=== PATIENT | female | born 1990 | race Caucasian/White ===

== ENCOUNTER 2018-03-10 17:20 | Outpatient (CLI) | payer OTHER ==
[2018-03-10 17:47] VITALS: BP 125/80
--- NOTE | 2018-03-12 08:09 | Physician Query-Final Dx ---
MADDISON MAURO 03/12/18 0809: Clinic Account Progress/Dx Physician Query: Please give diagnosis Date of Service Mar 10, 2018 at 17:20 KATHARINE BAEZ MD 03/12/18 0903: Clinic Account Progress/Dx DIAGNOSIS: Diagnosis 30 weeks gestation Neurologic symptoms, suspected complex migraine, however given severity of symptoms sent to ER for evaluation MADDISON MAURO Mar 12, 2018 08:09 KATHARINE BAEZ MD Mar 12, 2018 09:03
== END 2018-03-10 17:53 | disposition designated cancer center or children's hospital (05) ==
LOC: WSo 17:20 → LDRP 17:36 → WSo 17:53
PROVIDERS: ATTEND Family Medicine
DX: O99.353 Diseases of the nervous system complicating pregnancy, third trimester (principal); G43.909 Migraine, unspecified, not intractable, without status migrainosus; R20.0 Anesthesia of skin; R47.89 Other speech disturbances; Z3A.30 30 weeks gestation of pregnancy
CPT/HCPCS: 99211

== ENCOUNTER 2018-03-10 17:57 | Emergency (ER) | payer OTHER ==
[~2018-03-10] VITALS: Ht 162.6 cm; Wt 76.2 kg
[2018-03-10 18:25] LABS: BILIRUBIN,URINE NEGATIVE (NEGATIVE); CLARITY,URINE CLEAR; COLOR,URINE YELLOW; GLUCOSE, URINE (UA) NEGATIVE (NEGATIVE); KETONES,URINE NEGATIVE (NEGATIVE); LEUKOCYTE ESTERASE ,URINE 2+ (NEGATIVE); NITRITE,URINE NEGATIVE (NEGATIVE); PH,URINE 6.5 (5-9); PROTEIN,URINE NEGATIVE (NEGATIVE); UROBILINOGEN,URINE NORMAL (NORMAL)
[2018-03-10 18:38] LABS: BACTERIA,URINE FEW /HPF; SQUAMOUS EPITHELIAL CELL,UR 0-2 /HPF
--- NOTE | 2018-03-10 18:57 | ED General ---
General Chief Complaint: Neurological Problems Stated Complaint: MIGRANE, R HAND NUMB, VISION BLURRY Nursing Triage Note: TO ROOM PATIENT PATIET APX 29 WEEKS PREG, PMH OF MIGRAIN WAS AT WORK WHEN SHE STARTED SEEING BLACK SPOTS THAT SHE SEE'S WITH HER MIGRAIN. ,BUT CONCERNED THAT SHE COULD NOT THINK WHAT SHE WANTED TO SAY. AND HAD NUMBNESS IN R HAND. WITH HOT FLASHES. THINKS THEY LASTED APX 30 MIN.SYMPTOMS RESOLVED ON ADMIT. Nursing Sepsis Screen: No Definite Risk Source of Information: Patient Exam Limitations: No Limitations History of Present Illness Date Seen by Provider: Mar 10, 2018 Time Seen by Provider: 17:45 Initial Comments This 27-year-old woman at 30 weeks gestational age presents to the emergency room with acute neurologic symptoms of right hand numbness, blurry vision, receptive and expressive dysphasia, and headache. She was initially taken to labor and delivery because of her gestational age but was assessed there by this provider and brought back to the ER for clearance of her neurologic complaints. Patient's symptoms started while at work 1-2 hours prior to presentation. She initially thought she was having a migraine but then became concerned when symptoms were escalating. She has had similar symptoms with migraines in the past but has never had the expressive or receptive dysphasia which most concerned her. She then decided to present to the emergency room. She lives and receives her care in [place], [place]. She works in [employer]. Patient states her symptoms started mild and escalated. They then began to fade. On labor and delivery she had minimal numbness in her hand and minimal dysphasia. Headache and blurry vision had resolved. By the time she was brought back down to the emergency room her symptoms had resolved. She was normotensive. She denied any contractions, abdominal pain, or other abdominal complaints. Allergies and Home Medications Allergies Coded Allergies: No Known Drug Allergies (Unverified , 03/10/18) Home Medications No Active Prescriptions or Reported Meds Patient Home Medication List Home Medication List Reviewed: Yes Review of Systems Constitutional: no symptoms reported EENTM: see HPI Respiratory: no symptoms reported Cardiovascular: no symptoms reported Gastrointestinal: no symptoms reported Genitourinary: no symptoms reported : Yes Musculoskeletal: no symptoms reported Skin: no symptoms reported Psychiatric/Neurological: See HPI Hematologic/Lymphatic: No Symptoms Reported Immunological/Allergic: no symptoms reported Past Cgwcrll-Zlravw-Kkbkne Hx Patient Social History Alcohol Use: Denies Use Recreational Drug Use: No Smoking Status: Never a Smoker Recent Foreign Travel: No Contact w/Someone Who Travel: No Recent Infectious Disease Expo: No Past Medical History Surgeries: No Respiratory: No Cardiac: No Neurological: Yes Headaches /Migraines : Yes Reproductive Disorders: No Genitourinary: No Gastrointestinal: No Musculoskeletal: No Endocrine: No HEENT: No Cancer: No Psychosocial: No Integumentary: No Physical Exam Vital Signs Vital Signs - First Documented 03/10/18 18:00 Temp 98.0 Pulse 42 Resp 18 B/P (MAP) 125/84 (98) Pulse Ox 9 Capillary Refill : Less Than 3 Seconds General Appearance: No Apparent Distress, WD/WN HEENT: PERRL/EOMI, Normal ENT Inspection Neck: Normal Inspection Respiratory: Lungs Clear, Normal Breath Sounds, No Accessory Muscle Use, No Respiratory Distress Cardiovascular: Regular Rate, Rhythm, No Edema, No Murmur Gastrointestinal: Normal Bowel Sounds, Non Tender, Soft, Other (appropriately gravid for gestational age) Extremity: Normal Inspection, No Pedal Edema Neurologic/Psychiatric: Alert, Oriented x3, No Motor/Sensory Deficits, Normal Mood/Affect, care trainer II-XII Norm as Tested, Other (normal finger to nose and heel to urbina. Normal gait. Subtle expressive dysphasia noted on women's services which resolved by the time she arrived to the ER.) Skin: Normal Color, Warm/Dry Progress/Results/Core Measures Suspected Sepsis Recent Fever Within 48 Hours: No Infection Criteria Present: None New/Unexplained Altered Menta: No Sepsis Screen: No Definite Risk SIRS Temperature:98.0 Pulse: 42 Respiratory Rate: 18 Laboratory Tests 03/10/18 18:38: White Blood Count 13.6H Blood Pressure 125 /84 Mean: 98 Laboratory Tests 03/10/18 18:38: Creatinine 0.73, INR Comment 0.9, Platelet Count 255, Total Bilirubin 0.4 Results/Orders Lab Results Laboratory Tests Test 03/10/18 17:50 03/10/18 18:38 Range/Units Urine Color YELLOW Urine Clarity CLEAR Urine pH 6.5 5-9 Urine Specific [place] 1.015 L 1.016-1.022 Urine Protein NEGATIVE NEGATIVE Urine Glucose (UA) NEGATIVE NEGATIVE Urine Ketones NEGATIVE NEGATIVE Urine Nitrite NEGATIVE NEGATIVE Urine Bilirubin NEGATIVE NEGATIVE Urine Urobilinogen NORMAL NORMAL MG/DL Urine Leukocyte Esterase 2+ H NEGATIVE Urine RBC (Auto) NEGATIVE NEGATIVE Urine RBC NONE /HPF Urine WBC 2-5 /HPF Urine Squamous Epithelial Cells 0-2 /HPF Urine Crystals NONE /LPF Urine Bacteria FEW H /HPF Urine Casts NONE /LPF Urine Mucus NEGATIVE /LPF Urine Culture Indicated NO White Blood Count 13.6 H 4.3-11.0 10^3/uL Red Blood Count 3.72 L 4.35-5.85 10^6/uL Hemoglobin 11.9 11.5-16.0 G/DL Hematocrit 34 L 35-52 % Mean Corpuscular Volume 93 80-99 FL Mean Corpuscular Hemoglobin 32 25-34 PG Mean Corpuscular Hemoglobin Concent 35 32-36 G/DL Red Cell Distribution Width 11.9 10.0-14.5 % Platelet Count 255 130-400 10^3/uL Mean Platelet Volume 10.5 H 7.4-10.4 FL Neutrophils (%) (Auto) 71 42-75 % Lymphocytes (%) (Auto) 19 12-44 % Monocytes (%) (Auto) 8 0-12 % Eosinophils (%) (Auto) 1 0-10 % Basophils (%) (Auto) 0 0-10 % Neutrophils # (Auto) 9.7 H 1.8-7.8 X 10^3 Lymphocytes # (Auto) 2.6 1.0-4.0 X 10^3 Monocytes # (Auto) 1.1 H 0.0-1.0 X 10^3 Eosinophils # (Auto) 0.1 0.0-0.3 10^3/uL Basophils # (Auto) 0.1 0.0-0.1 10^3/uL Prothrombin Time 12.7 12.2-14.7 SEC INR Comment 0.9 0.8-1.4 Activated Partial Thromboplast Time 29 24-35 SEC Sodium Level 136 135-145 MMOL/L Potassium Level 3.4 L 3.6-5.0 MMOL/L Chloride Level 105 98-107 MMOL/L Carbon Dioxide Level 21 21-32 MMOL/L Anion Gap 10 5-14 MMOL/L Blood Urea Nitrogen 10 7-18 MG/DL Creatinine 0.73 0.60-1.30 MG/DL Estimat Glomerular Filtration Rate > 60 BUN/Creatinine Ratio 14 Glucose Level 76 70-105 MG/DL Uric Acid 4.3 2.6-7.2 MG/DL Calcium Level 9.2 8.5-10.1 MG/DL Total Bilirubin 0.4 0.1-1.0 MG/DL Aspartate Amino Transf (AST/SGOT) 21 5-34 U/L Alanine Aminotransferase (ALT/SGPT) 15 0-55 U/L Alkaline Phosphatase 61 40-136 U/L Total Protein 6.9 6.4-8.2 GM/DL Albumin 3.8 3.2-4.5 GM/DL My Orders Orders - RACHELLE PEREZ MD Cbc With Automated Diff (03/10/18 18:04) Comprehensive Metabolic Panel (03/10/18 18:04) Protime With Inr (03/10/18 18:04) Partial Thromboplastin Time (03/10/18 18:04) Ua Culture If Indicated (03/10/18 18:04) Saline Lock/Iv-Start (03/10/18 18:04) Uric Acid (03/10/18 18:04) Saline Lock/Iv-Start (03/10/18 18:04) Vital Signs/I&O 03/10/18 18:00 Temp 98.0 Pulse 42 Resp 18 B/P (MAP) 125/84 (98) Pulse Ox 9 Capillary Refill : Less Than 3 Seconds Blood Pressure Mean: 98 Progress Note : Progress Note Workup was unremarkable. Patient was asymptomatic at the time of discharge. heart tones were in the 120s. Patient is discharged to outpatient follow- up. Departure Impression Primary Impression: Atypical migraine Additional Impressions: Right hand paresthesia Blurry vision Dysphasia Qualified Codes: Z3A.30 - 30 weeks gestation of Disposition: 01 HOME, SELF-CARE Condition: Improved Departure-Patient Inst. Decision time for Depature: 19:35 Referrals: NO,LOCAL PHYSICIAN (PCP/Family) Primary Care Physician Patient Instructions: Migraine Headache (DC) Add. Discharge Instructions: Follow-up with your primary care provider and forest nursery worker as soon as possible. Return to care if symptoms worsen again. For pain take Tylenol (acetaminophen ) up to 1000 mg every 6 hours as needed. Your symptoms are most consistent with atypical migraine. Your workup today showed no evidence of preeclampsia. All discharge instructions reviewed with patient and/or family. Voiced understanding. Scripts No Active Prescriptions or Reported Meds RACHELLE PEREZ MD Mar 10, 2018 18:57
[2018-03-10 19:05] LABS: BASOPHILS # (AUTO) 0.1 10^3/uL (0.0-0.1); BASOPHILS % (AUTO) 0 % (0-10); EOSINOPHILS # (AUTO) 0.1 10^3/uL (0.0-0.3); EOSINOPHILS % (AUTO) 1 % (0-10); HEMATOCRIT 34 % (35-52); HEMOGLOBIN 11.9 G/DL (11.5-16.0); LYMPHOCYTES # (AUTO) 2.6 X 10^3 (1.0-4.0); LYMPHOCYTES % (AUTO) 19 % (12-44); MEAN CORPUSCULAR HEMOGLOBIN 32 PG (25-34); MEAN CORPUSCULAR HGB CONC 35 G/DL (32-36); MEAN CORPUSCULAR VOLUME 93 FL (80-99); MEAN PLATELET VOLUME 10.5 FL (7.4-10.4); MONOCYTES # (AUTO) 1.1 X 10^3 (0.0-1.0); MONOCYTES % (AUTO) 8 % (0-12); NEUTROPHILS # (AUTO) 9.7 X 10^3 (1.8-7.8); NEUTROPHILS % (AUTO) 71 % (42-75); PLATELET COUNT 255 10^3/uL (130-400); RED BLOOD COUNT 3.72 10^6/uL (4.35-5.85); RED CELL DISTRIBUTION WIDTH 11.9 % (10.0-14.5); WHITE BLOOD COUNT 13.6 10^3/uL (4.3-11.0)
[2018-03-10 19:16] LABS: INR 0.9 (0.8-1.4); PROTHROMBIN TIME PATIENT 12.7 SEC (12.2-14.7)
[2018-03-10 19:27] LABS: ALANINE AMINOTRANSFERASE 15 U/L (0-55); ALBUMIN 3.8 GM/DL (3.2-4.5); ALKALINE PHOSPHATASE 61 U/L (40-136); BILIRUBIN,TOTAL 0.4 MG/DL (0.1-1.0); BUN/CREATININE RATIO 14; CALCIUM 9.2 MG/DL (8.5-10.1); CARBON DIOXIDE 21 MMOL/L (21-32); CHLORIDE 105 MMOL/L (98-107); CREATININE SERUM 0.73 MG/DL (0.60-1.30); GFR ESTIMATED > 60; GLUCOSE 76 MG/DL (70-105); POTASSIUM 3.4 MMOL/L (3.6-5.0); SODIUM 136 MMOL/L (135-145); TOTAL PROTEIN 6.9 GM/DL (6.4-8.2); URIC ACID 4.3 MG/DL (2.6-7.2)
[2018-03-10 19:42] VITALS: BP 118/72
== END 2018-03-10 19:45 | disposition home or self-care (01) ==
LOC: EDUNIT# 17:57 → ER 18:00 → MERGE 18:00 → ER 19:45
DX: O99.353 Diseases of the nervous system complicating pregnancy, third trimester (principal); G43.909 Migraine, unspecified, not intractable, without status migrainosus; R20.2 Paresthesia of skin; O99.89 Other specified diseases and conditions complicating pregnancy, childbirth and the puerperium; H53.9 Unspecified visual disturbance; O99.613 Diseases of the digestive system complicating pregnancy, third trimester; R13.10 Dysphagia, unspecified; Z3A.30 30 weeks gestation of pregnancy
CPT/HCPCS: 36415; 80053; 81000; 84550; 85025; 85610; 85730; 99283